=== PATIENT | male | born 1975 | race Two or more races ===

== ENCOUNTER 2018-11-25 15:10 | Emergency (ER) | payer OTHER ==
[~2018-11-25] VITALS: Ht 162.6 cm; Wt 56.7 kg
--- NOTE | 2018-11-25 15:37 | NUR ---
ED Nurse Note: PT WALKED IN TO ER TODAY FROM WORK. AOX4. PT C/O UPPER LIP PAIN, 2/, AFTER A BOTTLE CAP FROM SPARKLING WATER PROJECTED FROM BOTTLE TO PT'S UPPER LIP. SOME SWELLING NOTED BUT NO ACTIVE BLEEDING OR OPEN WOUND NOTED.
[2018-11-25] MEDS ORDERED: IBUPROFEN600 MG ORAL (15:38)
[2018-11-25 15:39] VITALS: BP 126/74
--- NOTE | 2018-11-25 15:41 | NUR ---
ED Nurse Note: PT SITTING PEACEFULLY IN BED IN NAD. AOX4. PRESCRIPTION AND DISCHARGE PAPERWORK EXPLAINED TO PT. PT VERBALIZES UNDERSTANDING AND ALL QUESTIONS ANSWERED. PRESCRIPTION AND DISCHARGE PAPERWORK GIVEN TO PT AND ID WRISTBAND REMOVED. PT WALKED OUT OF ER WITH STEADY GAIT AND ALL BELONGINGS.
[2018-11-25 15:42] VITALS: BP 122/72
--- NOTE | 2018-11-25 15:42 | Emergency Room Report ---
History of Present Illness General Chief Complaint: Pain Source: Patient Present Illness HPI Disclaimer: Please note that this report is being documented using Message[employer] technology. This can lead to erroneous entry secondary to incorrect interpretation by the dictating instrument. HPI: 43-year-old otherwise healthy male presents for evaluation after a facial injury sustained at work. 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 He noted pain and swelling but denied any lacerations. Denies pain in the teeth, loose teeth, malocclusion. Denies any loss of consciousness, headache, neck pain, limitation of range of motion. He is able to tolerate his secretions, breathing without difficulty. He denies any current pain and applied ice after the injury. He was told to come in for evaluation of lip swelling. No other complaints at this time. He is otherwise healthy and takes no medications. PMH: Denies PSH: Denies Allergies: Denies Social Hx: Occasional alcohol use. Denies tobacco or drug use Allergies: Coded Allergies: No Known Allergies (Unverified , 11/25/18) Nursing Documentation-PMH Past Medical History: No Stated History Review of Systems All Other Systems: negative except mentioned in HPI Physical Exam Vital Signs Date Time Temp Pulse Resp B/P (MAP) Pulse Ox O2 Delivery O2 Flow Rate FiO2 11/25/18 15:26 98.2 57 18 130/70 (90) 98 Room Air General: Awake and alert, no acute distress HEENT: NC/AT. No scalp or face hematoma, lacerations or abrasions. EOMI. there is mild swelling of the upper and lower lip. No abrasions or lacerations. No loose dentition. No malocclusion. Facial bones are nontender , no crepitus, no overlying skin breakdown. Neck: Supple, trachea midline Resp: Normal work of breathing. Skin: Intact. No abrasions, laceration or rash over the exposed skin MSK: Normal tone and bulk. Moving all extremities. No obvious deformity. Neuro: Awake and alert. Mentating appropriately. Back/Spine: No midline tenderness in the cervical spine. 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 There is no loss of consciousness, the patient has some mild swelling of the upper and lower lip consistent with contusion but there is no underlying laceration, no malocclusion, no loose dentition is otherwise in his usual state of health. He will continue to apply ice and will prescribe him NSAIDs. He may return to full duties. His employment forms were filled out by me. No restrictions on his activities at work. He can follow-up with his PMD or with one of the clinics included in his discharge paperwork as needed. We discussed reasons to return to the emergency department. He understands and agrees with this treatment plan was discharged home. Last Vital Signs Date Time Temp Pulse Resp B/P (MAP) Pulse Ox O2 Delivery O2 Flow Rate FiO2 11/25/18 15:26 98.2 57 18 130/70 (90) 98 Room Air Disposition: HOME, SELF-CARE Condition: Stable Scripts Ibuprofen* (MOTRIN*) 600 Mg Tablet 600 MG ORAL Q6H PRN for For Pain, #30 TAB 0 Refills Prov: Amrik Stephenson MD 11/25/18 Referrals: Emiliano Ventura [facility] Additional Instructions: Continue to apply ice to the lips and use the ibuprofen as needed for pain and swelling. Return to the emergency department with any pain or difficulty opening the jaw, worsening swelling that makes it difficult to breathe or any other sudden severe symptoms. Follow-up with your primary doctor within the doctors listed in the clinic here as needed. Amrik Stephenson MD Nov 25, 2018 15:42
== END 2018-11-25 15:42 | disposition home or self-care (01) ==
LOC: EMR 15:40
DX: S00.83XA Contusion of other part of head, initial encounter (principal); W22.8XXA Striking against or struck by other objects, initial encounter; Y92.512 Supermarket, store or market as the place of occurrence of the external cause; Y99.0 Civilian activity done for income or pay
CPT/HCPCS: 99282